=== PATIENT | female | born 1940 | race Caucasian/White ===

== ENCOUNTER 2019-06-15 11:59 | Inpatient (IN) | payer MEDICARE, OTHER ==
[2019-06-15] VITALS: BP 153/93
[~2019-06-15] VITALS: Ht 152.4 cm; Wt 41.1 kg
[2019-06-15] MEDS ORDERED: IV NS 0.9% 500 ML BAG IV ONE ×2 (13:00→14:00)
[2019-06-15 13:01] LABS: BASOPHILS # (AUTO) 0.2 /CMM (0.0-0.2); BASOPHILS % (AUTO) 1.1 % (0.0-2.0); EOSINOPHILS % (AUTO) 0.6 % (0.0-6.0); HEMATOCRIT 29 % (33-45); LYMPHOCYTES # (AUTO) 1.3 /CMM (0.8-4.8); LYMPHOCYTES % (AUTO) 9.2 % (20.0-44.0); MEAN CORPUSCULAR HGB CONC 32 g/dl (31.0-36.0); MEAN CORPUSCULAR VOLUME 84 fL (82-100); MONOCYTES # (AUTO) 1.4 /CMM (0.1-1.30); MONOCYTES % (AUTO) 10.1 % (2.0-12.0); NEUTROPHILS # (AUTO) 11.3 /CMM (1.8-8.9); PLATELET COUNT (AUTO) 527 /CMM (150-450); RED BLOOD CELL COUNT(AUTO) 3.41 MIL/uL (4.0-5.2); WHITE BLOOD COUNT (AUTO) 14.3 K/uL (4.3-11.0)
[2019-06-15 13:07] LABS: CALCIUM, SERUM 8.6 mg/dL (8.5-10.1); CARBON DIOXIDE 23 mmol/L (21-32); CHLORIDE 119 mmol/L (98-107); CREATININE 1.5 mg/dL (0.6-1.3); GLUCOSE 118 mg/dL (74-106); POTASSIUM 4.9 mmol/L (3.5-5.1); SODIUM SERUM 152 mmol/L (136-145); UREA NITROGEN, BLOOD 67 mg/dL (7-18)
--- NOTE | 2019-06-15 13:10 | NUR ---
CHANG FROM [facility] TO ER BED 5. AAOX1. NOT IN RESP DISTRESS, BREATTHING EVEN AND UNLABORED. BEDBOUND. BROUGHT IN FOR FEVER. PER REPORT PT WAS NOTED WITH A TEMP OF 100.1 THIS MORNING AT THE FACILITY AND WAS GIVEN TYLENOL. RECTAL TEMP UPON ASSESSMENT NOTED AT 99.1. MD WAS AT BEDSIDE FOR EVAL. ORDERS RECEIVED, NOTED AND CARRIED OUT. IV LINE OBTAINED ON R AC 18G. BLOOD DRAWN AND GIVEN TO CAPTURE MANAGER AT BEDSIDE. URINE PBTAIEDN VIA IN AND OUT W/ STRICT STERILE TECHNIQUE. PT ON MONITOR
[2019-06-15 13:12] LABS: APPEARANCE,URINE Clear (CLEAR); BACTERIA,URINE Few /HPF (None Seen); BILIRUBIN,URINE Negative (NEGATIVE); BLOOD, URINE Negative Ery/uL (NEGATIVE); COLOR,URINE Yellow (YELLOW); KETONES,URINE Negative (NEGATIVE); LEUKOCYTE ESTERASE ,URINE Negative (NEGATIVE); NITRITE, URINE Negative (NEGATIVE); PROTEIN,URINE Trace mg/dl (NEGATIVE); RBC,URINE 0-2 /HPF (0-2); SQUAMOUS EPITHELIAL CELL,UR Few /HPF (None Seen); UGLUCOSE Negative (NEGATIVE); UROBILINOGEN,URINE 0.2 EU/dL (0.2); WBC,URINE 0-2 /HPF (0-3)
[2019-06-15 13:24] LABS: ALANINE AMINOTRANSFERASE 20 U/L (12-78); ALBUMIN 2.6 g/dL (3.4-5.0); ALKALINE PHOSPHATASE 121 U/L (46-116); ASPARTATE AMINOTRANSFERASE 14 U/L (15-37); B-TYPE NATRIURETIC PEPTIDE 800 PG/ML (0-125); BILIRUBIN,TOTAL 0.2 mg/dL (0.2-1.0); TOTAL PROTEIN, SERUM 7.3 g/dL (6.4-8.2)
[2019-06-15] MEDS ORDERED: ATOR10TA PO (13:52)
[2019-06-15] MEDS ORDERED: METH5TAB6 PO (13:52)
[2019-06-15] MEDS ORDERED: AMLO10TA7 PO (13:52)
[2019-06-15] MEDS ORDERED: MIRT15TA7 PO (13:52)
[2019-06-15] MEDS ORDERED: LISI10TA5 PO (13:52)
[2019-06-15] MEDS ORDERED: HYDR-4077 PO (13:52)
[2019-06-15] MEDS ORDERED: PIPERACILLIN /TAZOBACTAM 3.375 G in IV D5W 50 ML IV ONE (14:00)
[2019-06-15] MEDS ORDERED: VANCOMYCIN 1 GM in IV D5W 250 ML IV ONE (14:00)
--- NOTE | 2019-06-15 14:10 | NUR ---
CALLED NURSING SUP FOR TELE BED.
[2019-06-15] MEDS ORDERED: ACET-868 PO (14:58)
[2019-06-15] MEDS ORDERED: MAGN400O6 PO (14:58)
[2019-06-15] MEDS ORDERED: NA P133E RC (14:58)
[2019-06-15] MEDS ORDERED: SENN-175 PO (14:58)
[2019-06-15] MEDS ORDERED: MELA3TAB41 PO (14:58)
[2019-06-15] MEDS ORDERED: ASCO-373 PO (14:58)
[2019-06-15] MEDS ORDERED: HYDR20VI4 PO (14:58)
[2019-06-15] MEDS ORDERED: ZINC1CAP3 PO (14:58)
--- NOTE | 2019-06-15 16:10 | NUR ---
NURSING SUP GAVE 116-2.
--- NOTE | 2019-06-15 16:30 | NUR ---
REPORT GIVEN TO SINDHU MEDINA FOR LATISHA
--- NOTE | 2019-06-15 16:42 | NUR ---
PT BEING TRANSPORTED TO UNIT ON [facility] WITH 2 RN AT BEDSIDE W/ ACLS PROTOCOL. NAD NOTED.
--- NOTE | 2019-06-15 17:24 | NUR ---
PATIENT ADMITTED FROM ED. A&O X1 TO NAME OR TOUCH. PATIENT IS NONVERBAL. PATIENT MUMMBLES OR SAYS ONE WORD. PATIENT IS BEDBOUND. NO PAST HISTORY OF SURGERY. TEMPERATURE 97.2 BP 138/89 RR 18 HR 89 O2 99 NO S/S F PAIN OR DISTRESS. BED IN LOWEST POSITION. CALL LIGHT IN REACH. WILL CONTINUE TO MONITOR PATIENT.
--- NOTE | 2019-06-15 18:40 | NUR ---
PATIENT IN BED RESTING. CALL LIGHT IN REACH. BED IN LOWEST POSITION. NO SIGN OR SYMPTOMS OF PAIN OR DISTRESS. WILL GIVE REPORT TO NIGHT NURSE.
--- NOTE | 2019-06-15 19:30 | NUR ---
TELE 1 RN NOTES RECEIVED REPORT FROM DOG BATHER,PATEINT CAME AT 1730 ADMISSION,ALERT X1,MUMBLE,COMBATIVE TO CARE,WITH SALINE LOCK RIGHT AC INTACT AND PATENT.INCONTINENT OF URINE,NOTED OPEN NECROTIC WOUND ON SACRAL AREA.FALL RISK,BED ALARM TRIGGERED.ISOLATION PRECAUTION FOR R/O COVID 19, AWAITING FOR RESULT
[2019-06-15 20:00] VITALS: BP 157/94
[2019-06-15] MEDS ORDERED: ACETAMINOPHEN 325 MG TABLET PO PRN (21:00)
[2019-06-15] MEDS ORDERED: AZITHROMYCIN 500 MG in IV D5W 250 ML IV ONE (21:00)
[2019-06-15] MEDS ORDERED: IV NS 0.9% 1,000 ML IV PRN (21:00)
--- NOTE | 2019-06-15 21:15 | NUR ---
TELE 1 RN NOTES PATIENT OF DR PEREZ,HURL SHAKER WAS JENNY AMADOR LE QUALITY ASSURANCE INSPECTOR,MADE AWARE OF THE ADMISSION WITH ORDERS NOTED AND CARRIED OUT.
--- NOTE | 2019-06-15 21:30 | NUR ---
ELECTRICIAN SUBSTATION NOTES STARTED ON NS AT 70ML/HR RATE ORDERED.
--- NOTE | 2019-06-15 21:45 | NUR ---
HEAT AND FROST INSULATOR HELPER NOTES DRESSING CHANGE DONE TO SACRAL WOUND,CLEANSE WITH NS,APPLIED WET TO DRY AND COVERED WITH MEPILEX AND EBD PAD
[2019-06-15] MEDS ORDERED: AZITHROMYCIN 500 MG VIAL ONE (22:33)
--- NOTE | 2019-06-15 23:00 | NUR ---
SENIOR SOFTWARE ENGINEER ANALYTICS NOTES GIVEN ZITHROMAX 500MG IV X1 DOSE ORDERED,THEN Q DAILY.
[2019-06-15 23:14] LABS: ABG BASE EXCESS -6.9 mmol/L; ABG PCO2 29.2 mmHg (35.0-45.0); ABG PH 7.382 (7.350-7.450); ABG PO2 87.2 mmHg (75.0-100.0); AaDO2 27.6 mmHg; COHb 0.4 % (0.5-1.5); MetHb 0.3 % (0.0-1.5); O2Hb 95.3 % (94.0-97.0); SITE, ABG Right Brachial; VENT MODE, BG RA
[2019-06-16] VITALS: BP 153/93
[2019-06-16 04:00] VITALS: BP 148/74
--- NOTE | 2019-06-16 06:07 | NUR ---
PIPE CREW FOREMAN NOTES SLEPT WITH INTERVALS,,COMBATIVE WITH CARE,AFEBRILE THRU OUT SHIFT.IN NO ACUTE DISTRESS.WILL ENDORSE TO DAY NURSE FOR LATISHA.
[2019-06-16 07:24] LABS: BASOPHILS # (AUTO) 0.1 /CMM (0.0-0.2); BASOPHILS % (AUTO) 0.6 % (0.0-2.0); HEMATOCRIT 27 % (33-45); HEMOGLOBIN 8.5 g/dL (11.5-14.8); LYMPHOCYTES # (AUTO) 1.1 /CMM (0.8-4.8); LYMPHOCYTES % (AUTO) 8.3 % (20.0-44.0); MEAN CORPUSCULAR HGB CONC 32 g/dl (31.0-36.0); MEAN CORPUSCULAR VOLUME 84 fL (82-100); MONOCYTES # (AUTO) 0.9 /CMM (0.1-1.30); NEUTROPHILS # (AUTO) 10.7 /CMM (1.8-8.9); NEUTROPHILS % (AUTO) 83.1 % (43.0-81.0); PLATELET COUNT (AUTO) 461 /CMM (150-450); RED BLOOD CELL COUNT(AUTO) 3.16 MIL/uL (4.0-5.2); WHITE BLOOD COUNT (AUTO) 12.9 K/uL (4.3-11.0)
--- NOTE | 2019-06-16 07:30 | NUR ---
Tele/RN Opening Received patient AO x 1, confused, able to responds all stimuli. Skin is warm to touch, clean/dry, intact IV site. Respiratory even and unlabored with oxygen n/c at 2 LPM. Keep low position of the bed with elevated HOB for secure airway. Call light within reach, will continue to monitor.
[2019-06-16 07:56] LABS: ALANINE AMINOTRANSFERASE 17 U/L (12-78); ALBUMIN 2.4 g/dL (3.4-5.0); ALKALINE PHOSPHATASE 107 U/L (46-116); ASPARTATE AMINOTRANSFERASE 13 U/L (15-37); BILIRUBIN,TOTAL 0.3 mg/dL (0.2-1.0); CALCIUM, SERUM 8.2 mg/dL (8.5-10.1); CARBON DIOXIDE 20 mmol/L (21-32); CHLORIDE 121 mmol/L (98-107); CREATININE 1.4 mg/dL (0.6-1.3); GLUCOSE 83 mg/dL (74-106); POTASSIUM 4.7 mmol/L (3.5-5.1); SODIUM SERUM 154 mmol/L (136-145); TOTAL PROTEIN, SERUM 6.7 g/dL (6.4-8.2); UREA NITROGEN, BLOOD 59 mg/dL (7-18)
[2019-06-16 08:00] VITALS: BP_SYST 145; BP_DIAS 90; BP_DIAS 99
[2019-06-16 12:00] VITALS: BP_SYST 115; BP_SYST 136; BP_DIAS 48; BP_DIAS 83
[2019-06-16] MEDS ORDERED: ACETAMINOPHEN 325 MG TABLET PO PRN (13:30)
[2019-06-16] MEDS: AMLODIPINE BESYLATE 10 MG TABLET PO SCH (13:30)
[2019-06-16] MEDS ORDERED: METHIMAZOLE (5MG) 5 MG TABLET PO SCH (13:30)
[2019-06-16] MEDS: MIRTAZAPINE 15 MG TABLET PO SCH (13:30)
[2019-06-16] MEDS: LISINOPRIL (10MG) 10 MG TABLET PO SCH (13:30)
[2019-06-16] MEDS ORDERED: ZINC SULFATE 220 MG CAPSULE PO SCH (13:30)
[2019-06-16] MEDS: SENNOSIDES 8.6 MG TABLET PO SCH ×2 (13:30→17:30)
[2019-06-16] MEDS ORDERED: MAGNESIUM HYDROXIDE 30 ML UDC PO PRN (13:30)
--- NOTE | 2019-06-16 14:30 | NUR ---
Patient transferred to 2nd floor med/surg room 200, given report Fela/SINDHU. Pt in stable condition.
--- NOTE | 2019-06-16 14:30 | NUR ---
MS RN NOTES RECEIVED PATIENT FROM SCAR YOUNG RN FOR CONTINUATION OF CARE. PQATIENT ORIENTED TO ROOM, CALL LIGHT. HOB ELEVATED. 93% ROOM AIR SPO2. BED IN LOWEST POSITION, LOCKED. BED ALARM ON. CALL LIGTH WITHIN REACH.
[2019-06-16 16:00] VITALS: BP 147/96
[2019-06-16 16:20] LABS: THYROID STIMULATING HORMONE 0.062 uIU/mL (0.358-3.74)
[2019-06-16 16:23] LABS: MAGNESIUM 2.3 mg/dL (1.8-2.4); PHOSPHORUS 3.8 mg/dL (2.5-4.9)
[2019-06-16] MEDS: IV D5W 1,000 ML IV SCH (17:31)
[2019-06-16] MEDS: METHIMAZOLE (5MG) 5 MG TABLET PO SCH (18:35)
--- NOTE | 2019-06-16 19:00 | NUR ---
MS RN NOTES ENDORSED TO INCOMING SHIFT DR. PEREZ ORDER FOR D5W @ 75ML/HR X 24HR THEN 1/2 NS @ 75ML/HR.
--- NOTE | 2019-06-16 19:00 | NUR ---
MS RN NOTES PATIENT RESTING COMFORTABLY IN BED. HOB ELEVATED. NO SOB, NO FEVER OBSERVED DURING THE SHIFT. REMAINS ON ROOM AIR WITH SPO2 94%. DENIES ANY C/O PAIN NOR DISCOMFORT AT THIS TIME. WOUND CARE DONE MORELIA WELL. RIGHT AC #20 INTACT AND PATENT INFUSING D5W @ 75ML/HR MORELIA WELL. BED IN LOWEST POSITION, LOCKED. BED ALARM ON. CALL LIGHT WITHIN REACH. IN NO APPARENT DISTRESS.
--- NOTE | 2019-06-16 19:30 | NUR ---
MS RN OPENING NOTE RECEIVED PATIENT IN BED. A/OX1, CONFUSED. TOLERATING ROOM AIR. RR EVEN AND UNLABORED. NO S/S SOB NOTED. NO C/O PAIN AT THIS TIME. IN NO APPARENT DISTRESS. IV ACCESS IN RAC#20 RUNNING D5W@75ML/HR. BED IS LOW AND LOCKED, HOB ELEVATED IN SEMI FOWLERS, SIDE RIALS UP X2, CALL LIGHT WITHIN REACH. WILL CONTINUE TO MONITOR.
[2019-06-16 20:00] VITALS: BP 137/93
[2019-06-16] MEDS ORDERED: AZITHROMYCIN 500 MG in IV D5W 250 ML IV SCH (21:00)
[2019-06-16] MEDS ORDERED: Medication Not On Formulary EA (Melatonin 3 MG) PO SCH (22:00)
[2019-06-17] MEDS: IV D5W 1,000 ML IV SCH (05:58)
--- NOTE | 2019-06-17 06:47 | NUR ---
MS RN CLOSING NOTE PATIENT IN BED. A/OX1, CONFUSED. REMAINS TOLERATING ROOM AIR. RR EVEN AND UNLABORED. NO SOB NOTED. NO C/O PAIN. NO DISTRESS. IV ACCESS MAINTAINED IN RAC#20 RUNNING D5W@75ML/HR. BED REMAINS LOW AND LOCKED, HOB ELEVATED IN SEMI FOWLERS, SIDE RIALS UP X2, CALL LIGHT WITHIN REACH. WILL ENDORSE TO NEXT SHIFT.
[2019-06-17 06:49] LABS: BASOPHILS # (AUTO) 0.1 /CMM (0.0-0.2); BASOPHILS % (AUTO) 0.6 % (0.0-2.0); EOSINOPHILS % (AUTO) 0.9 % (0.0-6.0); HEMATOCRIT 26 % (33-45); HEMOGLOBIN 8.3 g/dL (11.5-14.8); LYMPHOCYTES % (AUTO) 8.3 % (20.0-44.0); MEAN CORPUSCULAR HGB CONC 32 g/dl (31.0-36.0); MEAN CORPUSCULAR VOLUME 84 fL (82-100); MONOCYTES # (AUTO) 0.9 /CMM (0.1-1.30); NEUTROPHILS # (AUTO) 10.5 /CMM (1.8-8.9); NEUTROPHILS % (AUTO) 83.2 % (43.0-81.0); PLATELET COUNT (AUTO) 450 /CMM (150-450); RED BLOOD CELL COUNT(AUTO) 3.07 MIL/uL (4.0-5.2); WHITE BLOOD COUNT (AUTO) 12.6 K/uL (4.3-11.0)
--- NOTE | 2019-06-17 07:00 | NUR ---
MS RN NOTE CALLED LAB TO NOTIFY THEM THERE IS A SPECIMEN FOR VENEER STOCK LAYER. MRSA BOTH NARES.
[2019-06-17 07:29] LABS: ALBUMIN 2.3 g/dL (3.4-5.0); BILIRUBIN,TOTAL 0.2 mg/dL (0.2-1.0); CALCIUM, SERUM 8.2 mg/dL (8.5-10.1); CREATININE 1.3 mg/dL (0.6-1.3); MAGNESIUM 2.2 mg/dL (1.8-2.4); PHOSPHORUS 3.2 mg/dL (2.5-4.9); POTASSIUM 4.7 mmol/L (3.5-5.1); TOTAL PROTEIN, SERUM 6.6 g/dL (6.4-8.2)
[2019-06-17 08:00] VITALS: BP 127/89
[2019-06-17] MEDS: MIRTAZAPINE 15 MG TABLET PO SCH (08:24)
[2019-06-17] MEDS: SENNOSIDES 8.6 MG TABLET PO SCH ×2 (08:24→17:56)
[2019-06-17] MEDS: LISINOPRIL (10MG) 10 MG TABLET PO SCH (08:25)
[2019-06-17] MEDS: AMLODIPINE BESYLATE 10 MG TABLET PO SCH (08:25)
[2019-06-17] MEDS: METHIMAZOLE (5MG) 5 MG TABLET PO SCH ×2 (08:27→17:56)
--- NOTE | 2019-06-17 08:41 | NUR ---
WOUND CARE CONSULT: PT PRESENTS WITH FOUL PURULENT NECROTIC WOUND TO SACRAL AREA AND BILATERAL PLANTAR FEET CALLUSES, LATERAL KNEE SCARS, ALL PRESENT ON ADMISSION. RECOMMENDATIONS MADE FOR SKIN PROTECTION AND WOUND CARE. DISCUSSED WITH NURSING STAFF. PT ON BRENDON ISOFLEX LOW AIRLOSS BED. RECOMMEND SURGICAL CONSULT. DR GEOVANNA COYNE NOTIFIED OF CONSULT REQUEST. MD IN AGREEMENT WITH PLAN OF CARE. WILL SEE PRN. CURRENT CHRISTOPHER SCORE IS 11. Addendum: 06/17/19 at 0844 by RUDDY WILSON WNDNU Amended: Links added.
[2019-06-17] MEDS ORDERED: IV D5W 1,000 ML IV PRN (08:43)
[2019-06-17] MEDS ORDERED: Z GUARD REMEDY 2 OZ OINT TP PRN (09:00)
[2019-06-17] MEDS ORDERED: ASCORBIC ACID 500 MG TABLET PO SCH (09:00)
[2019-06-17 12:00] VITALS: BP 137/71
[2019-06-17] MEDS ORDERED: LIDOCAINE 1%-EPI 1:100,000 20 ML VIAL TP ONE (12:00)
--- NOTE | 2019-06-17 12:00 | NUR ---
MS RN NOTES MULTIPLE ATTEMPTS MADE TO OBTAIN CONSENT FOR WOUND DEBRIDEMENT. CONSENT WAS SIGNED BY COORDINATOR OF PLACEMENT FOR EMERGENCY DEBRIDEMENT. WILL CONTINUE TO MONITOR.
[2019-06-17] MEDS ORDERED: SILVER NITRATE APPLICATOR 1 EA BOX TP STA (12:13)
--- NOTE | 2019-06-17 12:40 | NUR ---
MS MANLEY NOTES WOUND DEBRIDEMENT WAS PERFORMED HAYDER MORFIN PATIENT TOLERATED WELL.
[2019-06-17] MEDS: DAKINS QUARTER STRENGTH (0.125%) 480 ML BOTTLE TOP SCH (13:40)
[2019-06-17] MEDS: Z GUARD REMEDY 2 OZ OINT TP SCH (13:40)
[2019-06-17 16:04] VITALS: BP 100/67
[2019-06-17] MEDS: GLUCERNA SHAKE 237 ML CAN PO SCH (17:00)
--- NOTE | 2019-06-17 18:40 | NUR ---
MS RN NOTES PATIENT IN BED RESTING NO SOB OR ACUTE DISTRESS NOTED. ALL DUE MEDICATIONS ADMINISTERED. ALL NEED MET. NO ACUTE CHANGED NOTED DURING SHIFT. WILL ENDORSE CARE TO PM SHIFT.
--- NOTE | 2019-06-17 19:30 | NUR ---
MS RN OPENING NOTE RECEIVED PATIENT IN BED. A/OX1, CONFUSED. TOLERATING ROOM AIR. RR EVEN AND UNLABORED. NO S/S SOB NOTED. NO C/O PAIN AT THIS TIME. IN NO APPARENT DISTRESS. IV ACCESS IN LFA#22 RUNNING D5W@75ML/HR. BED IS LOW AND LOCKED, HOB ELEVATED IN HIGH FOWLERS, SIDE RIALS UP X2, CALL LIGHT WITHIN REACH. WILL CONTINUE TO MONITOR.
[2019-06-17 20:00] VITALS: BP 138/78
[2019-06-17 20:13] VITALS: BP 138/78
--- NOTE | 2019-06-17 21:06 | NUR ---
MS RN NOTE ADMINISTERED PRN TYLENOL 650MG FOR SLIGHT TEMP OF 99.6. WILL CONTINUE TO MONITOR.
--- NOTE | 2019-06-17 22:14 | NUR ---
MS RN NOTE RECHECKED TEMPERATURE 98.0.
[2019-06-18 04:22] VITALS: BP 154/85
--- NOTE | 2019-06-18 06:44 | NUR ---
MS RN CLOSING NOTE PATIENT IN BED. A/OX1, CONFUSED. TOLERATING ROOM AIR. RR EVEN AND UNLABORED. NO SOB NOTED. NO C/O PAIN. NO DISTRESS. IV ACCESS IN MAINTAINED LFA#22 RUNNING D5W@75ML/HR. BED REMAINS LOW AND LOCKED, HOB ELEVATED IN SEMI FOWLERS, SIDE RIALS UP X2, CALL LIGHT WITHIN REACH. WILL ENDORSE TO NEXT SHIFT
[2019-06-18 07:30] VITALS: BP 145/96
[2019-06-18 08:00] VITALS: BP 145/96
--- NOTE | 2019-06-18 08:00 | NUR ---
MS RN OPENING NOTE RECEIVED PATIENT IN BED. A/OX1, CONFUSED. TOLERATING ROOM AIR. RR EVEN AND UNLABORED. NO S/S SOB NOTED. NO C/O PAIN AT THIS TIME. IN NO APPARENT DISTRESS. IV ACCESS IN LFA#22 RUNNING D5W@75ML/HR. BED IS LOW AND LOCKED, HOB ELEVATED IN HIGH FOWLERS ,TURNED EVERY TWO HRS. SIDE RIALS UP X2, CALL LIGHT WITHIN REACH. WILL CONTINUE TO MONITOR.
[2019-06-18] MEDS: SENNOSIDES 8.6 MG TABLET PO SCH ×2 (09:02→16:09)
[2019-06-18] MEDS: METHIMAZOLE (5MG) 5 MG TABLET PO SCH ×2 (09:02→16:09)
[2019-06-18] MEDS: Z GUARD REMEDY 2 OZ OINT TP SCH (09:02)
[2019-06-18] MEDS: MIRTAZAPINE 15 MG TABLET PO SCH (09:02)
[2019-06-18] MEDS: AMLODIPINE BESYLATE 10 MG TABLET PO SCH (09:02)
[2019-06-18] MEDS: LISINOPRIL (10MG) 10 MG TABLET PO SCH (09:02)
[2019-06-18] MEDS: GLUCERNA SHAKE 237 ML CAN PO SCH ×3 (09:46→16:09)
[2019-06-18] MEDS: DAKINS QUARTER STRENGTH (0.125%) 480 ML BOTTLE TOP SCH (09:46)
[2019-06-18 10:03] LABS: CREATININE 1.3 mg/dL (0.6-1.3); POTASSIUM 4.3 mmol/L (3.5-5.1)
[2019-06-18 10:04] LABS: CALCIUM, SERUM 7.8 mg/dL (8.5-10.1)
[2019-06-18] MEDS: IV 1/2NS 1000 ML 1,000 ML IV PRN (13:24)
[2019-06-18 16:00] VITALS: BP 113/67
[2019-06-18 20:00] VITALS: BP 118/76
--- NOTE | 2019-06-18 20:00 | NUR ---
RN NOTES RECEIVED PT. AWAKE ON BED A./OX2, NOT IN DISTRESS, NO PAIN NOTED, BED IN LOCKED POSITION, SIDERAILSUPX2, CALL LIGHT WITHIN REACH, CONTINUE TO MONITOR
--- NOTE | 2019-06-19 | NUR ---
RN NOTES IV GOT INFILTRATED, NEW IV LINE INSERTED ON THE LEFT AC #20
[2019-06-19] MEDS: IV 1/2NS 1000 ML 1,000 ML IV PRN ×2 (04:33→20:13)
--- NOTE | 2019-06-19 06:57 | NUR ---
RN NOTES AWAKE, MORNING CARE RENDERED, NOT IN DISTRESS NO PAIN NOTED, MORNING CARE RENDERED, PT. NEEDS ATTENDED
--- NOTE | 2019-06-19 07:30 | NUR ---
PT RECEIVED RESTING COMFORTABLY IN BED WITH EYES CLOSED. NO S/S OR C/O PAIN OR DISTRESS NOTED. SIDE RAILS UP X2, CALL LIGHT LEFT WITHIN REACH. WILL CONTINUE PLAN OF CARE.
[2019-06-19 08:00] VITALS: BP 136/85
[2019-06-19 08:03] LABS: CALCIUM, SERUM 7.9 mg/dL (8.5-10.1); CREATININE 1.3 mg/dL (0.6-1.3); POTASSIUM 4.5 mmol/L (3.5-5.1)
[2019-06-19] MEDS: GLUCERNA SHAKE 237 ML CAN PO SCH ×3 (08:55→17:00)
[2019-06-19] MEDS: AMLODIPINE BESYLATE 10 MG TABLET PO SCH (08:55)
[2019-06-19] MEDS: METHIMAZOLE (5MG) 5 MG TABLET PO SCH ×2 (08:56→16:03)
[2019-06-19] MEDS: LISINOPRIL (10MG) 10 MG TABLET PO SCH (08:56)
[2019-06-19] MEDS: DAKINS QUARTER STRENGTH (0.125%) 480 ML BOTTLE TOP SCH (08:56)
[2019-06-19] MEDS: SENNOSIDES 8.6 MG TABLET PO SCH ×2 (08:56→16:03)
[2019-06-19] MEDS: MIRTAZAPINE 15 MG TABLET PO SCH (08:56)
[2019-06-19] MEDS: Z GUARD REMEDY 2 OZ OINT TP SCH (08:57)
[2019-06-19 16:00] VITALS: BP 107/63
--- NOTE | 2019-06-19 18:31 | NUR ---
CHANGE OF SHIFT REPORT PT RESTING COMFORTABLY IN BED WITH EYES CLOSED. NO S/S OR C/O PAIN OR DISTRESS NOTED. PT KEPT CLEAN, DRY, AND COMFORTABLE. NO SIGNIFICANT CHANGES SINCE PREVIOUS SHIFT. SIDE RAILS UP X2, CALL LIGHT WITHIN REACH. WILL GIVE REPORT TO STEPHANIE MANLEY.
[2019-06-19 20:00] VITALS: BP 121/71
--- NOTE | 2019-06-19 20:00 | NUR ---
RN NOTES RECEIVED PT/ AWAKE ON BED,A /OX2, NOT IN DISTRESS, NO PAIN NOTED, SIDERAILUPX2. CONTINUE TO MONITOR
[2019-06-19 20:15] VITALS: BP 121/71
--- NOTE | 2019-06-20 07:00 | NUR ---
RN NOTES SLEEPING BUT AROUSABLE, NOT IN DISTRESS, NO PAIN NOTED, MORNING CARE RENDERED, SIDERAILSUPX2, PT. NEEDS ATTENDED
[2019-06-20 08:00] VITALS: BP 133/72
--- NOTE | 2019-06-20 08:00 | NUR ---
RN NOTES PATIENT IN BED RESTING, NO SOB OR ACUTE DISTRESS NOTED. PERIPHERAL IV INTACT PATENT. BED IN LOW LOCKED POSITION, CALL LIGHT WITHIN REACH. WILL CONTINUE TO MONITOR.
[2019-06-20] MEDS: LISINOPRIL (10MG) 10 MG TABLET PO SCH (09:04)
[2019-06-20] MEDS: METHIMAZOLE (5MG) 5 MG TABLET PO SCH ×2 (09:04→17:11)
[2019-06-20] MEDS: MIRTAZAPINE 15 MG TABLET PO SCH (09:05)
[2019-06-20] MEDS: SENNOSIDES 8.6 MG TABLET PO SCH ×2 (09:05→17:11)
[2019-06-20] MEDS: AMLODIPINE BESYLATE 10 MG TABLET PO SCH (09:05)
[2019-06-20] MEDS: Z GUARD REMEDY 2 OZ OINT TP SCH (09:06)
[2019-06-20] MEDS: GLUCERNA SHAKE 237 ML CAN PO SCH ×3 (09:07→17:00)
[2019-06-20] MEDS: DAKINS QUARTER STRENGTH (0.125%) 480 ML BOTTLE TOP SCH (12:48)
[2019-06-20 16:00] VITALS: BP 130/81
--- NOTE | 2019-06-20 18:15 | NUR ---
MS RN NOTES PATIENT TRANSFERRED TO ROOM 311-1 IN STABLE CONDITION. REPORT GIVEN TO ESTRELLITA RN AT BEDSIDE. ALL DUE MEDICATIONS ADMINISTERED. NO ACUTE CHANGES DURING SHIFT.
[2019-06-20] MEDS: IV 1/2NS 1000 ML 1,000 ML IV PRN (18:39)
--- NOTE | 2019-06-20 18:56 | NUR ---
rn notes Patient received patient from estefany MANLEY MS2. Vital signs stable, no sob ntoed.
--- NOTE | 2019-06-20 19:00 | NUR ---
RN OPENING NOTES Received patient awake on Ibarra's position on bed, A/O x2, with confusion noted. On RA, no SOB/respiratory distress noted. With peripheral IV line LAC G#20. Attached IVF line 1/2NS @ 75ml/hr as ordered, no s/sx of infiltration noted. No s/x of discomforted noted at this time. Kept on bed clean, dry and comfortable. Call light within easy reach. On fall and aspiration precautions. Will continue to monitor accordingly.
[2019-06-20 20:00] VITALS: BP 139/86
[2019-06-20 20:19] VITALS: BP 139/86
--- NOTE | 2019-06-20 20:26 | NUR ---
RN NOTES Offered some pudding and aleksandar with apple and orange juice to patient, tolerated well. Kept HOB elevated, on aspiration precautions. Will continue to monitor accordingly.
--- NOTE | 2019-06-21 02:30 | NUR ---
MS RN NOTES RECEIVED PATIENT FROM SINDHU WALKER, ALERT AND ORIENTED X 1-2, CONFUSED. BREATHING REGULAR AND UNLABORED ON ROOM AIR. LEFT AC G20 IV LINE INTACT AND INFUSING WELL. NO S/S OF PAIN/DISCOMFORT NOTED AT THIS TIME. BED LOW AND LOCKED ON SEMI FOWLERS POSITION. WILL CONTINUE TO MONITOR.
--- NOTE | 2019-06-21 02:31 | NUR ---
RN NOTES - TRANSFER OF CARE Endorsed to SINDHU Guzmán for LATISHA. Patient asleep, in stable condition at this time.
[2019-06-21] MEDS: IV 1/2NS 1000 ML 1,000 ML IV PRN (06:02)
--- NOTE | 2019-06-21 06:35 | NUR ---
MS RN CLOSING NOTES PATIENT IN BED ALERT AND ORIENTED X 1-2. AFEBRILE WITH NO S/S OF DISTRESS OBSERVED. NO S/S OF PAIN/DISCOMFORT NOTED AT THIS TIME. BED LOW AND LOCKED ON SEMI FOWLERS POSITION. CALL LIGHT IN REACH. WILL ENDORSE TO MORNING SHIFT FOR LATISHA.
[2019-06-21 07:36] LABS: CALCIUM, SERUM 7.4 mg/dL (8.5-10.1); CREATININE 1.2 mg/dL (0.6-1.3); POTASSIUM 4.8 mmol/L (3.5-5.1)
[2019-06-21 08:00] VITALS: BP 125/70
[2019-06-21] MEDS: GLUCERNA SHAKE 237 ML CAN PO SCH ×3 (08:00→17:00)
[2019-06-21] MEDS: LISINOPRIL (10MG) 10 MG TABLET PO SCH (09:00)
[2019-06-21] MEDS: AMLODIPINE BESYLATE 10 MG TABLET PO SCH (09:00)
[2019-06-21] MEDS: SENNOSIDES 8.6 MG TABLET PO SCH ×2 (09:00→17:00)
[2019-06-21] MEDS: MIRTAZAPINE 15 MG TABLET PO SCH (09:00)
[2019-06-21] MEDS: Z GUARD REMEDY 2 OZ OINT TP SCH (09:00)
[2019-06-21] MEDS: DAKINS QUARTER STRENGTH (0.125%) 480 ML BOTTLE TOP SCH (09:00)
[2019-06-21] MEDS: METHIMAZOLE (5MG) 5 MG TABLET PO SCH ×2 (09:00→17:00)
--- NOTE | 2019-06-21 10:54 | NUR ---
PATIENT LYING IN BED RESTING. ALL NEEDS MET. NO SIGNS AND SYMPTOMS OF PAIN AND DISTRESS. PATIENT IS POLITE AND COMPLYING WITH ALL CARE. WOUND CARE COMPLETED. BED IN LOWEST POSITION. CALL LIGHT IN REACH. WILL CONTINUE TO MONITOR PATIENT THROUGHOUT SHIFT.
[2019-06-21 16:00] VITALS: BP 127/67
--- NOTE | 2019-06-21 18:52 | NUR ---
PATIENT IN BED RESTING. NO SIGNS OR SYMPTOMS OF PAIN OR DISTRESS. BED IN LOW POSITION. CALL LIGHT IN REACH. WILL GIVE REPORT TO AIR BRUSH OPERATOR.
--- NOTE | 2019-06-21 19:35 | NUR ---
MS RN OPENING NOTES RECEIVED PATIENT FROM MORNING SHIFT, ALERT AND ORIENTED X 1. VERBALLY RESPONSIVE CONFUSED. BREATHING REGULAR AND UNLABORED ON ROOM AIR. LEFT AC G20 IV LINE INTACT AND PATENT, INFUSING WELL WITH NO BLEEDING OR S/S OF INFILTRATION NOTED. NO S/S OF PAIN/DISCOMFORT NOTED AT THIS TIME. BED LOW AND LOCKED ON SEMI FOWLERS POSITION. CALL LIGHT IN REACH. WILL CONTINUE TO MONITOR.
[2019-06-21 20:00] VITALS: BP 117/61
--- NOTE | 2019-06-21 22:00 | NUR ---
MS RN NOTES WOUND TREATMENTS PROVIDED, REPOSITIONING EVERY 2HRS AND NEEDED.
--- NOTE | 2019-06-22 07:15 | NUR ---
ms rn received on bed, awake,alert,oriented x2,not in any form of distress,respirations even and unlabored,no sob noted, noted to have a sacral wound,will monitor patient.
[2019-06-22 08:00] VITALS: BP 131/79
[2019-06-22] MEDS: GLUCERNA SHAKE 237 ML CAN PO SCH ×3 (08:00→17:00)
--- NOTE | 2019-06-22 09:20 | NUR ---
ms rn refused meds at this time, will take it later .
--- NOTE | 2019-06-22 09:40 | NUR ---
ms moulton breakfast served,due meds given,tolerated well.
[2019-06-22] MEDS: SENNOSIDES 8.6 MG TABLET PO SCH ×2 (10:25→18:05)
[2019-06-22] MEDS: MIRTAZAPINE 15 MG TABLET PO SCH (10:25)
[2019-06-22 10:26] VITALS: BP 139/79
[2019-06-22] MEDS: LISINOPRIL (10MG) 10 MG TABLET PO SCH (10:26)
[2019-06-22] MEDS: AMLODIPINE BESYLATE 10 MG TABLET PO SCH (10:26)
[2019-06-22] MEDS: METHIMAZOLE (5MG) 5 MG TABLET PO SCH ×2 (10:32→18:05)
--- NOTE | 2019-06-22 11:00 | NUR ---
ms rn was able to take morning meds.
--- NOTE | 2019-06-22 16:00 | NUR ---
ms moulton was seen by emerald miguel dressing to left foot.all needs attended. Addendum: 06/22/19 at 1938 by ELEN ARROYO RN wrong documwnetation,disregard notes.
--- NOTE | 2019-06-22 18:00 | NUR ---
ms rn on bed, no distress noted,all needs attended.
[2019-06-22] MEDS: DAKINS QUARTER STRENGTH (0.125%) 480 ML BOTTLE TOP SCH (18:06)
[2019-06-22] MEDS: Z GUARD REMEDY 2 OZ OINT TP SCH (18:06)
--- NOTE | 2019-06-22 18:30 | NUR ---
ms rn patient went/transferred to snf, report given to jeff moulton.
== END 2019-06-22 18:20 | DRG 981 ==
LOC: ER 11:59 → TELE1 17:06 → TELE2 06-16 14:16 → MEDSG2 06-16 16:05 → MED 06-20 18:40
PROVIDERS: ADMIT Internal Medicine; ATTEND Internal Medicine
PROC: 0KBP0ZZ Excision of Left Hip Muscle, Open Approach (ICD-10-PCS; principal; 2019-06-17)
PROC: 0KBN0ZZ Excision of Right Hip Muscle, Open Approach (ICD-10-PCS; 2019-06-17)
DX: N17.9 Acute kidney failure, unspecified (principal); L89.154 Pressure ulcer of sacral region, stage 4; E87.2 Acidosis; E46 Unspecified protein-calorie malnutrition; Z68.1 Body mass index [BMI] 19.9 or less, adult; E87.0 Hyperosmolality and hypernatremia; L03.312 Cellulitis of back [any part except buttock and flank]; L02.212 Cutaneous abscess of back [any part, except buttock and flank]; F03.90 Unspecified dementia, unspecified severity, without behavioral disturbance, psychotic disturbance, mood disturbance, and anxiety; M62.84 Sarcopenia; R53.83 Other fatigue; D72.829 Elevated white blood cell count, unspecified; E83.51 Hypocalcemia; E05.90 Thyrotoxicosis, unspecified without thyrotoxic crisis or storm; N18.9 Chronic kidney disease, unspecified; I12.9 Hypertensive chronic kidney disease with stage 1 through stage 4 chronic kidney disease, or unspecified chronic kidney disease; R63.4 Abnormal weight loss; D63.8 Anemia in other chronic diseases classified elsewhere; R62.7 Adult failure to thrive; E61.1 Iron deficiency
CPT/HCPCS: 36415; 36600; 71045-TC; 80048-TC; 80053-TC; 80061-TC; 80076-TC; 81000-TC; 82728-TC; 82803-TC; 83540-TC; 83605-TC; 83735-TC; 83880; 84100-TC; 84439-TC; 84443-TC; 84484-TC; 85025-TC; 87040-TC; 87070-TC; 87081-TC; 87086-TC; 87186-TC; 88304-TC; 88312-TC; 93307-TC; A6253; A6403; G0378; J0456; J2543; J3370; J3490; J7030; J7040; J7060; J7070